=== PATIENT | female | born 1980 | race Caucasian/White ===

== ENCOUNTER 2017-02-04 02:20 | Inpatient (IN) | payer OTHER ==
[2017-02-04] MEDS ORDERED: Lidocaine 1% 50 ML MDV INJECT ONE (02:48)
[2017-02-04] MEDS ORDERED: Sodium Chloride 0.9% 10 ML Syringe FLUSH PRN (02:48)
[2017-02-04] MEDS ORDERED: ePHEDrine 50 MG/ML SDV IVPUSH PRN (03:24)
[2017-02-04] MEDS ORDERED: fentaNYL 100 MCG/2 ML SDV EPIDUR PRN (03:24)
[2017-02-04] MEDS ORDERED: Ondansetron 4 MG/2 ML SDV IVPUSH PRN (03:24)
[2017-02-04] MEDS ORDERED: diphenhydrAMINE 50 MG/ML SDV IVPUSH PRN (03:24)
[2017-02-04] MEDS ORDERED: Bupivacaine/fentaNYL/NS 100 ML Bag EPIDUR SCH (03:30)
--- NOTE | 2017-02-04 03:30 | PCM.PREANE ---
Preanesthetic Assessment - Procedure Proposed Procedure: Labor Epidural - Anesthesia/Transfusion/Family Hx Anesthesia History: Prior Anesthesia Without Reaction Family History of Anesthesia Reaction: No Transfusion History: No Prior Transfusion(s) Type of Transfusion Reactions: Reports: Unknown Intubation History: Unknown - Review of Systems General: No Symptoms Pulmonary: No Symptoms Cardiovascular: No Symptoms Gastrointestinal: No Symptoms Neurological: No Symptoms Other: Reports: None - Physical Assessment NPO Status Date: 02/04/17 NPO Status Time: 00:15 Pulse: 89 O2 Sat by Pulse Oximetry: 98 Respiratory Rate: 22 Blood Pressure: 122/77 Temperature: 36.9 C Height: 1.68 m Weight: 78.925 kg ASA Class: 2 Mental Status: Alert & Oriented x3 Airway Class: Mallampati = 2 Dentition: Reports: Missing Tooth/Teeth (multiple molars ) ROM/Head Extension: Full Lungs: Clear to Auscultation, Normal Respiratory Effort Cardiovascular: Regular Rate, Regular Rhythm - Lab Values: Laboratory Last Values WBC 15.68 K/mm3 (3.98-10.04) H 02/04/17 02:55 RBC 3.75 M/mm3 (3.98-5.22) L 02/04/17 02:55 Hgb 10.4 gm/L (11.2-15.7) L 02/04/17 02:55 Hct 31.7 % (34.1-44.9) L 02/04/17 02:55 MCV 84.5 fl (79.4-94.8) 02/04/17 02:55 MCH 27.7 pg (25.6-32.2) 02/04/17 02:55 MCHC 32.8 g/dl (32.2-35.5) 02/04/17 02:55 RDW Std Deviation 46.1 fL (36.4-46.3) 02/04/17 02:55 Plt Count 221 K/mm3 (182-369) 02/04/17 02:55 MPV 11.5 fl (9.4-12.3) 02/04/17 02:55 - Allergies Allergies/Adverse Reactions: Allergies Allergy/AdvReac Type Severity Reaction Status Date / Time No Known Allergies Allergy Verified 01/19/16 11:18 - Blood Blood Available: No Product(s) Available: None - Anesthesia Plan Pre-Op Medication Ordered: None - Acknowledgements Anesthesia Type Planned: Epidural Pt an Appropriate Candidate for the Planned Anesthesia: Yes Alternatives and Risks of Anesthesia Discussed w Pt/Guardian: Yes Pt/Guardian Understands and Agrees with Anesthesia Plan: Yes PreAnesthesia Questionnaire Other HEENT History: Migraines Other OB/BYN History: cervical dysplasia Musculoskeletal History: Reports: Back Pain, Chronic, Other (See Below) Other Musculoskeletal History: knee pain, foot tendinitis, osteopenia, Psychiatric History: Reports: Depression - Past Surgical History Other Musculoskeletal Surgeries/Procedures:: L wrist surgery, tendon repair - SUBSTANCE USE Smoking Status *Q: Current Every Day Smoker (0.5ppd for 20 years) Tobacco Use Within Last Twelve Months: Cigarettes Second Hand Smoke Exposure: Yes Recreational Drug Use History: No - HOME MEDS Home Medications: Home Meds Calcium Carbonate/Vitamin D3 [Calcium 250+D] 1 each PO BID 01/18/16 [History] Diclofenac Sodium [IJD: Diclofenac Sodium] 75 mg PO WITHBREAKFAST 01/18/16 [ History] Gabapentin [Neurontin] 400 mg PO TID 01/18/16 [History] tiZANidine HCl [Tizanidine HCl] 2 mg PO DAILY 01/18/16 [History] - CURRENT (IN HOUSE) MEDS Current Meds: Current Medications Lactated Ringer's (Ringers, Lactated) 1,000 mls @ 100 mls/hr IV ASDIRECTED SHRUTHI Oxytocin/Lactated Ringer's (Pitocin In Lr 10 Units/1,000 Ml) 10 unit in 1,000 mls @ 500 mls/hr IV .CONTINUOUS SHRUTHI Sodium Chloride (Saline Flush) 10 ml FLUSH ASDIRECTED PRN PRN Reason: Keep Vein Open Discontinued Medications Lidocaine HCl (Xylocaine 1%) 50 ml INJECT ONETIME ONE Stop: 02/04/17 02:49
[2017-02-04] MEDS: Lactated Ringers 1,000 ML IV SCH ×3 (03:33→09:29)
--- NOTE | 2017-02-04 08:20 | PCM.LDHP ---
L&D History of Present Illness - General Date of Service: 02/04/17 Admit Problem/Dx: Patient Status Order with Admit Dx/Problem 02/04/17 02:30 Patient Status [ADT] Routine Admission Diagnosis/Problem Admission Diagnosis/Problem Source of Information: Patient History Limitations: Reports: No Limitations - History of Present Illness Introduction:: 36-year-old [address] 01/29/17 at 40 weeks and 6 days admitted during the night with contractions examination at 0810 hrs. with ruptured membranes showed cervix 7 cm/100% effaced/soft/anterior 0 station meconium-stained amnionic fluid front desk supervisor notified patient's history of advanced maternal age and history of Rh- prior LEEP in 1999 and 2000 previous subsequent delivery should no different difficulties with dilation except progress made only after rupture of membranes and no need for cerclage blood type A- antibody screen negative on 06/04/16 hemoglobin hematocrit 16.3 46.4 on 06/04/16 platelets 194,000 immune rubella titer nonreactive serology urine culture showed Gardnerella vaginalis hepatitis B surface antigen negative and GC chlamydia probe negative harmony obtained 46 XY (female) maternal serum alpha-fetoprotein negative menses negative quad screen) on 11/05/16 hemoglobin hematocrit 12.6 37.2 platelets 214, 000 OB glucose screen 131 3 hour glucose test normal with fasting 80, 1 hour 155 , two-hour 140, 3 hour 44 patient given rogue M111/05/16 admitted for labor and delivery patient presented to labor and delivery with spontaneous labor. Amniotomy performed at 0810 hrs. meconium-stained amnionic fluid front desk supervisor notified Timing/Duration: Reports: minutes: Location, : Reports: Abdomen Quality: Reports: Ache, Burning, Pressure Severity: Severe Pain Score: 10 Improves with: Reports: None Worsens with: Reports: None Associated Symptoms: Reports: N - Related Data Allergies/Adverse Reactions: Allergies Allergy/AdvReac Type Severity Reaction Status Date / Time No Known Allergies Allergy Verified 01/19/16 11:18 Home Medications: Home Meds Calcium Carbonate/Vitamin D3 [Calcium 250+D] 1 each PO BID 01/18/16 [History] Diclofenac Sodium [IJD: Diclofenac Sodium] 75 mg PO WITHBREAKFAST 01/18/16 [ History] Gabapentin [Neurontin] 400 mg PO TID 01/18/16 [History] tiZANidine HCl [Tizanidine HCl] 2 mg PO DAILY 01/18/16 [History] Past Medical History - Past Health History Medical/Surgical History: Denies Medical/Surgical History Other HEENT History: Migraines Other OB/BYN History: cervical dysplasia Musculoskeletal History: Reports: Back Pain, Chronic, Other (See Below) Other Musculoskeletal History: knee pain, foot tendinitis, osteopenia, Psychiatric History: Reports: Depression - Infectious Disease History Infectious Disease History: Reports: Herpes - Past Surgical History Other Musculoskeletal Surgeries/Procedures:: L wrist surgery, tendon repair Social & Family History - Family History Family Medical History: Noncontributory - Tobacco Use Smoking Status *Q: Current Every Day Smoker (0.5ppd for 20 years) Years of Tobacco use: 15 Packs/Tins Daily: 0.5 Used Tobacco, but Quit: No Second Hand Smoke Exposure: Yes - Caffeine Use Caffeine Use: Reports: Soda Other Caffeine Use: 1/day - Recreational Drug Use Recreational Drug Use: No H&P Review of Systems - Review of Systems: Review Of Systems: See Below General: Reports: No Symptoms HEENT: Reports: No Symptoms Pulmonary: Reports: No Symptoms Cardiovascular: Reports: No Symptoms Gastrointestinal: Reports: No Symptoms Genitourinary: Reports: No Symptoms Musculoskeletal: Reports: No Symptoms Skin: Reports: No Symptoms Psychiatric: Reports: No Symptoms Neurological: Reports: No Symptoms Hematologic/Lymphatic: Reports: No Symptoms Immunologic: Reports: No Symptoms L&D Exam - Exam Exam: See Below - Vital Signs Vital Signs: Last Vital Signs Temp 98.4 F 02/04/17 03:33 Pulse 89 02/04/17 03:33 Resp 22 H 02/04/17 03:33 BP 122/77 02/04/17 03:33 Pulse Ox 98 02/04/17 03:33 Weight: 174 lb - OB Specific Fundal Height In cm: 39 Contraction Duration (sec): 60 Contraction Frequency (min): 3 Contraction Intensity: Moderate to Strong Movement: Active Heart Tones: Present Heart Tones per Min: 130 Heart Rate (FHR) Variability: Moderate (6-25 bmp) Presentation: Vertex - Torres Score Torres Score Cervix Position: Anterior Torres Score Consistency: Soft Torres Score Effacement: >80% Torres Score Dilation: > 5 cm Torres Score 's Station: -1 ,0 Torres Score Total: 12 - Exam General: Alert, Oriented HEENT: Conjunctiva Clear, Mucosa Moist & [place], Posterior Pharynx Clear, TMs Clear, PERRLA Neck: Supple, Trachea Midline Lungs: Clear to Auscultation, Normal Respiratory Effort Cardiovascular: Regular Rate, Regular Rhythm GI/Abdominal Exam: Normal Bowel Sounds, Soft, Non-Tender, No Organomegaly, No Distention, No Abnormal Bruit, No Mass, Pelvis Stable Rectal Exam: Normal Exam, Normal Rectal Tone Genitourinary: Normal external exam, Normal bimanual exam, Normal speculum exam Back Exam: Normal Inspection, Full Range of Motion Extremities: Normal Inspection, Normal Range of Motion, Non-Tender, No Pedal Edema, Normal Capillary Refill Skin: Warm, Dry, Intact Psychiatric: Alert, Normal Affect, Normal Mood - Patient Data Lab Results Last 24 hrs: Laboratory Results - last 24 hr 02/04/17 Range/Units 02:55 WBC 15.68 H (3.98-10.04) K/mm3 RBC 3.75 L (3.98-5.22) M/mm3 Hgb 10.4 L (11.2-15.7) gm/L Hct 31.7 L (34.1-44.9) % MCV 84.5 (79.4-94.8) fl MCH 27.7 (25.6-32.2) pg MCHC 32.8 (32.2-35.5) g/dl RDW Std Deviation 46.1 (36.4-46.3) fL Plt Count 221 (182-369) K/mm3 MPV 11.5 (9.4-12.3) fl Result Diagrams: 02/04/17 02:55 - Problem List (1) 40 weeks gestation of SNOMED Code(s): 63465346 ICD Code: Z3A.40 - 40 WEEKS GESTATION OF Status: Acute Current Visit: Yes (2) Advanced maternal age in multigravida SNOMED Code(s): 420959836 ICD Code: O09.529 - SUPERVISION OF ELDERLY MULTIGRAVIDA, UNSPECIFIED TRIMESTER Status: Acute Current Visit: Yes Qualifiers: Trimester: third trimester Qualified Code(s): O09.523 - Supervision of elderly multigravida, third trimester (3) Meconium in amniotic fluid affecting management of mother in third trimester SNOMED Code(s): 47730103, 67729308 ICD Code: O36.8930 - MATERNAL CARE FOR OTH PROBLEMS, THIRD TRIMESTER, UNSP Status: Acute Current Visit: Yes Qualifiers: Fetus number: single or unspecified fetus Qualified Code(s): O36.8930 - Maternal care for other specified problems, third trimester, not applicable or unspecified Problem List Initiated/Reviewed/Updated: No Orders Last 24hrs: Active Orders 24 hr Category Date Time Status Patient Status [ADT] Routine ADT 02/04/17 02:30 Active Activity as Tolerated [RC] PFP Care 02/04/17 02:48 Active Communication Order [RC] ASDIRECTED Care 02/04/17 02:48 Active Notify Provider [RC] PFP Care 02/04/17 02:48 Active Notify Provider [RC] PRN Care 02/04/17 02:48 Active Peripheral IV Care [RC] . DIRECTED Care 02/04/17 02:48 Active Vital Signs [RC] 04,12,20 Care 02/04/17 02:48 Active Clear Liquid Diet [DIET] Diet 02/04/17 Breakfast Active Bupivacaine/fentaNYL/NS [fentaNYL/Bupivacaine/NS 2 MCG- Med 02/04/17 03:30 Active 0.125% 100 ML] 100 ml EPIDUR ASDIRECTED Lactated Ringers [Ringers, Lactated] 1,000 ml Med 02/04/17 03:00 Active IV ASDIRECTED Ondansetron [Zofran] Med 02/04/17 03:24 Active 4 mg IVPUSH ONETIME PRN Oxytocin/Lactated Ringers [Pitocin in LR 10 Units/1,000 Med 02/04/17 03:00 Active ML] 10 unit in 1,000 ml IV .CONTINUOUS Sodium Chloride 0.9% [Saline Flush] Med 02/04/17 02:48 Active 10 ml FLUSH ASDIRECTED PRN diphenhydrAMINE [Benadryl] Med 02/04/17 03:24 Active 25 mg IVPUSH Q6H PRN ePHEDrine [ePHEDrine Sulfate] Med 02/04/17 03:24 Active 5 mg IVPUSH ASDIRECTED PRN fentaNYL [Sublimaze] Med 02/04/17 03:24 Active 100 mcg EPIDUR Q3H PRN Electronic Heart Tones Ext w TOCO [WOMSER] Oth 02/04/17 02:48 Ordered Routine Electronic Heart Tones Internal [WOMSER] Per Unit Oth 02/04/17 02:48 Ordered Routine Peripheral IV Insertion Adult [OM.PC] Routine Oth 02/04/17 02:48 Ordered Resuscitation Status Routine Resus Stat 02/04/17 02:48 Ordered Medication Orders Diphenhydramine HCl (Benadryl) 25 mg IVPUSH Q6H PRN PRN Reason: Pruritis Ephedrine Sulfate (Ephedrine Sulfate) 5 mg IVPUSH ASDIRECTED PRN PRN Reason: Hypotension Fentanyl (Sublimaze) 100 mcg EPIDUR Q3H PRN PRN Reason: Pain Last Admin: 02/04/17 03:56 Dose: 100 mcg Fentanyl/Bupivacaine HCl (Fentanyl/Bupivacaine/Ns 2 Mcg-0.125% 100 Ml) 100 ml EPIDUR ASDIRECTED SHRUTHI Last Admin: 02/04/17 03:57 Dose: 100 ml Lactated Ringer's (Ringers, Lactated) 1,000 mls @ 100 mls/hr IV ASDIRECTED SHRUTHI Last Admin: 02/04/17 03:34 Dose: 100 mls/hr Infusion: 02/04/17 03:34 Dose: 100 mls/hr Admin: 02/04/17 03:33 Dose: 100 mls/hr Oxytocin/Lactated Ringer's (Pitocin In Lr 10 Units/1,000 Ml) 10 unit in 1,000 mls @ 500 mls/hr IV .CONTINUOUS [facility] Ondansetron HCl (Zofran) 4 mg IVPUSH ONETIME PRN PRN Reason: Nausea/Vomiting Sodium Chloride (Saline Flush) 10 ml FLUSH ASDIRECTED PRN PRN Reason: Keep Vein Open Assessment/Plan Comment:: Admit for labor and delivery
[2017-02-04] MEDS: Oxytocin/Lactated Ringers 10 UNIT/1,000 ML BAG IV SCH ×2 (10:52→12:14)
--- NOTE | 2017-02-04 11:06 | PCM.DEL ---
L & D Note - General Info Date of Service: 02/04/17 Mother's Due Date: 01/29/17 - Delivery Note Labor: Spontaneous, Augmented by ARM Delivery Outcome: Livebirth (Male liveborn is 0952 on Saturday02/04/17 MADELINE 4490 g 9 pounds 14.4 ounces Apgars 03/23 Dr. Magdaleno outside repairer special in attendance) Infant Delivery Method: Spontaneous Vaginal Delivery Presentation: Left Occiput Anterior (MADELINE) Nuchal Cord: None Prep: Povidone-Iodine (Betadine Anesthesia Type: Epidural Amniotic Fluid Description: Meconium Stained (Lightly meconium-stained amnionic fluid Dr. Magdaleno outside repairer special in attendance for delivery) Episiotomy Type: None Laceration: None ("Skid ferreira" periurethral first-degree not bleeding not sutured) Placenta: Intact (0 954 02/04/17 Intacs slightly eccentric cord insertion normal examination of the placenta three-vessel cord no missing cotyledons no extra lobes) Cord: 3 Vessels Estimated Blood Loss: 500 Resuscitation Needed: No [place]: Suctioned, Bulb Syringe, Stimulated, Warmed, [place] Used, Warmer Used Provider: Polo Iraheta Score 1 min: 9 Score 5 min: 9 - Patient Data Vitals - most recent: Last Vital Signs Temp 98.4 F 02/04/17 03:33 Pulse 89 02/04/17 03:33 Resp 22 H 02/04/17 03:33 BP 122/77 02/04/17 03:33 Pulse Ox 98 02/04/17 03:33 Weight - most recent: 174 lb Lab Results last 24 hrs: Laboratory Results - last 24 hr 02/04/17 Range/Units 02:55 WBC 15.68 H (3.98-10.04) K/mm3 RBC 3.75 L (3.98-5.22) M/mm3 Hgb 10.4 L (11.2-15.7) gm/L Hct 31.7 L (34.1-44.9) % MCV 84.5 (79.4-94.8) fl MCH 27.7 (25.6-32.2) pg MCHC 32.8 (32.2-35.5) g/dl RDW Std Deviation 46.1 (36.4-46.3) fL Plt Count 221 (182-369) K/mm3 MPV 11.5 (9.4-12.3) fl Med Orders - Current: Current Medications Diphenhydramine HCl (Benadryl) 25 mg IVPUSH Q6H PRN PRN Reason: Pruritis Ephedrine Sulfate (Ephedrine Sulfate) 5 mg IVPUSH ASDIRECTED PRN PRN Reason: Hypotension Fentanyl (Sublimaze) 100 mcg EPIDUR Q3H PRN PRN Reason: Pain Last Admin: 02/04/17 03:56 Dose: 100 mcg Fentanyl/Bupivacaine HCl (Fentanyl/Bupivacaine/Ns 2 Mcg-0.125% 100 Ml) 100 ml EPIDUR ASDIRECTED SHRUTHI Last Admin: 02/04/17 03:57 Dose: 100 ml Lactated Ringer's (Ringers, Lactated) 1,000 mls @ 100 mls/hr IV ASDIRECTED SHRUTHI Last Admin: 02/04/17 09:29 Dose: 100 mls/hr Oxytocin/Lactated Ringer's (Pitocin In Lr 10 Units/1,000 Ml) 10 unit in 1,000 mls @ 500 mls/hr IV .CONTINUOUS [facility] Ondansetron HCl (Zofran) 4 mg IVPUSH ONETIME PRN PRN Reason: Nausea/Vomiting Sodium Chloride (Saline Flush) 10 ml FLUSH ASDIRECTED PRN PRN Reason: Keep Vein Open Discontinued Medications Lidocaine HCl (Xylocaine 1%) 50 ml INJECT ONETIME ONE Stop: 02/04/17 02:49 - Problem List & Annotations (1) 40 weeks gestation of SNOMED Code(s): 68855569 Code(s): Z3A.40 - 40 WEEKS GESTATION OF Status: Acute Current Visit: Yes (2) Advanced maternal age in multigravida SNOMED Code(s): 440273574 Code(s): O09.529 - SUPERVISION OF ELDERLY MULTIGRAVIDA, UNSPECIFIED TRIMESTER Status: Acute Current Visit: Yes Qualifiers: Trimester: third trimester Qualified Code(s): O09.523 - Supervision of elderly multigravida, third trimester (3) Meconium in amniotic fluid affecting management of mother in third trimester SNOMED Code(s): 12663253, 77129474 Code(s): O36.8930 - MATERNAL CARE FOR OTH PROBLEMS, THIRD TRIMESTER, UNSP Status: Acute Current Visit: Yes Qualifiers: Fetus number: single or unspecified fetus Qualified Code(s): O36.8930 - Maternal care for other specified problems, third trimester, not applicable or unspecified - Problem List Review Problem List Initiated/Reviewed/Updated: No - Plan Plan:: Admit for labor and delivery
[2017-02-04] MEDS ORDERED: Docusate Sodium 100 MG Cap PO PRN (11:14)
[2017-02-04] MEDS ORDERED: Witch Hazel Medicated Pads 100/Jar TOP PRN (11:14)
[2017-02-04] MEDS ORDERED: Acetaminophen 325 MG Tab PO PRN (11:14)
[2017-02-04] MEDS ORDERED: Lanolin 100% Cream 7 GM Tube TOP PRN (11:14)
[2017-02-04] MEDS ORDERED: Benzocaine/Menthol 20%-0.5% Spray 56 GM Canister TOP PRN (11:14)
[2017-02-04] MEDS ORDERED: Acetaminophen/oxyCODONE 325-5 MG Tab PO PRN (11:14)
[2017-02-04] MEDS ORDERED: Oxytocin/Lactated Ringers 10 UNIT/1,000 ML BAG IV ONE (12:10)
[2017-02-04] MEDS: Ibuprofen 600 MG Tab PO PRN ×2 (12:44→18:13)
[2017-02-04] MEDS: Gabapentin 100 MG Cap PO SCH ×2 (16:16→23:14)
[2017-02-04] MEDS: Gabapentin 300 MG Cap PO SCH ×2 (16:16→23:14)
[2017-02-04] MEDS ORDERED: Bupivacaine 0.25% 10 ML SDV ONE (22:22)
--- NOTE | 2017-02-05 08:18 | PCM48HPAN ---
Post Anesthesia Note - EVALUATION WITHIN 48HRS OF ANESTHETIC Vital Signs in Normal Range: Yes Patient Participated in Evaluation: Yes Respiratory Function Stable: Yes Airway Patent: Yes Cardiovascular Function Stable: Yes Hydration Status Stable: Yes Pain Control Satisfactory: Yes Nausea and Vomiting Control Satisfactory: Yes Mental Status Recovered: Yes - COMMENTS/OBSERVATIONS Free Text/Narrative:: Patient denies any headache, residual numbness or tingling to lower extremities , or back pain.
--- NOTE | 2017-02-05 08:31 | PCM.DCSUM1 ---
Discharge Summary - Hospital Course Free Text/Narrative:: [facility] LIVE L/D Delivery Note Patient Name: LINCOLN BURNETTE Date of : 76 Patient Status: Inpatient Attending Provider: Yesy Stiles Date: 02/04/17 11:03 Initialization Date: 02/04/17 11:03 L & D Note - General Info Date of Service: 02/04/17 Mother's Due Date: 01/29/17 - Delivery Note Labor: Spontaneous, Augmented by ARM Delivery Outcome: Livebirth (Male liveborn is 0952 on Saturday02/04/17 MADELINE 4490 g 9 pounds 14.4 ounces Apgars 03/23 Dr. Magdaleno siderographer in attendance) Infant Delivery Method: Spontaneous Vaginal Delivery Presentation: Left Occiput Anterior (MADELINE) Nuchal Cord: None Prep: Povidone-Iodine (Betadine Anesthesia Type: Epidural Amniotic Fluid Description: Meconium Stained (Lightly meconium-stained amnionic fluid Dr. Magdaleno siderographer in attendance for delivery) Episiotomy Type: None Laceration: None ("Skid ferreira" periurethral first-degree not bleeding not sutured) Placenta: Intact (0 954 02/04/17 Intacs slightly eccentric cord insertion normal examination of the placenta three-vessel cord no missing cotyledons no extra lobes) Cord: 3 Vessels Estimated Blood Loss: 500 Resuscitation Needed: No : Suctioned, Bulb Syringe, Stimulated, Warmed, Rio Used, Warmer Used Provider: Polo Iraheta Score 1 min: 9 Score 5 min: 9 - Patient Data Vitals - most recent: Last Vital Signs Temp 98.4 F 02/04/17 03:33 Pulse 89 02/04/17 03:33 Resp 22 H 02/04/17 03:33 BP 122/77 02/04/17 03:33 Pulse Ox 98 02/04/17 03:33 Weight - most recent: 174 lb Lab Results last 24 hrs: Laboratory Results - last 24 hr 02/04/17 Range/Units 02:55 WBC 15.68 H (3.98-10.04) K/mm3 RBC 3.75 L (3.98-5.22) M/mm3 Hgb 10.4 L (11.2-15.7) gm/L Hct 31.7 L (34.1-44.9) % MCV 84.5 (79.4-94.8) fl MCH 27.7 (25.6-32.2) pg MCHC 32.8 (32.2-35.5) g/dl RDW Std Deviation 46.1 (36.4-46.3) fL Plt Count 221 (182-369) K/mm3 MPV 11.5 (9.4-12.3) fl Med Orders - Current: Current Medications Diphenhydramine HCl (Benadryl) 25 mg IVPUSH Q6H PRN PRN Reason: Pruritis Ephedrine Sulfate (Ephedrine Sulfate) 5 mg IVPUSH ASDIRECTED PRN PRN Reason: Hypotension Fentanyl (Sublimaze) 100 mcg EPIDUR Q3H PRN PRN Reason: Pain Last Admin: 02/04/17 03:56 Dose: 100 mcg Fentanyl/Bupivacaine HCl (Fentanyl/Bupivacaine/Ns 2 Mcg-0.125% 100 Ml) 100 ml EPIDUR ASDIRECTED [facility] Last Admin: 02/04/17 03:57 Dose: 100 ml Lactated Ringer's (Ringers, Lactated) 1,000 mls @ 100 mls/hr IV ASDIRECTED [facility] Last Admin: 02/04/17 09:29 Dose: 100 mls/hr Oxytocin/Lactated Ringer's (Pitocin In Lr 10 Units/1,000 Ml) 10 unit in 1,000 mls @ 500 mls/hr IV .CONTINUOUS [facility] Ondansetron HCl (Zofran) 4 mg IVPUSH ONETIME PRN PRN Reason: Nausea/Vomiting Sodium Chloride (Saline Flush) 10 ml FLUSH ASDIRECTED PRN PRN Reason: Keep Vein Open Discontinued Medications Lidocaine HCl (Xylocaine 1%) 50 ml INJECT ONETIME ONE Stop: 02/04/17 02:49 - Problem List & Annotations (1) 40 weeks gestation of SNOMED Code(s): 55909094 Code(s): Z3A.40 - 40 WEEKS GESTATION OF Status: Acute Current Visit: Yes (2) Advanced maternal age in multigravida SNOMED Code(s): 970241872 Code(s): O09.529 - SUPERVISION OF ELDERLY MULTIGRAVIDA, UNSPECIFIED TRIMESTER Status: Acute Current Visit: Yes Qualifiers: Trimester: third trimester Qualified Code(s): O09.523 - Supervision of elderly multigravida, third trimester (3) Meconium in amniotic fluid affecting management of mother in third trimester SNOMED Code(s): 50940156, 35552279 Code(s): O36.8930 - MATERNAL CARE FOR OTH PROBLEMS, THIRD TRIMESTER, UNSP Status: Acute Current Visit: Yes Qualifiers: Fetus number: single or unspecified fetus Qualified Code(s): O36.8930 - Maternal care for other specified problems, third trimester, not applicable or unspecified - Problem List Review Problem List Initiated/Reviewed/Updated: No - Plan Plan:: Admit for labor and delivery HPI Initial Comments: [facility] LIVE L/D Delivery Note Patient Name: LINCOLN BURNETTE Date of : 76 Patient Status: Inpatient Attending Provider: Yesy Stiles Date: 02/04/17 11:03 Initialization Date: 02/04/17 11:03 L & D Note - General Info Date of Service: 02/04/17 Mother's Due Date: 01/29/17 - Delivery Note Labor: Spontaneous, Augmented by ARM Delivery Outcome: Livebirth (Male liveborn is 0952 on Saturday02/04/17 MADELINE 4490 g 9 pounds 14.4 ounces Apgars 9/9 Dr. Magdaleno siderographer in attendance) Infant Delivery Method: Spontaneous Vaginal Delivery Presentation: Left Occiput Anterior (MADELINE) Nuchal Cord: None Prep: Povidone-Iodine (Betadine Anesthesia Type: Epidural Amniotic Fluid Description: Meconium Stained (Lightly meconium-stained amnionic fluid Dr. Magdaleno siderographer in attendance for delivery) Episiotomy Type: None Laceration: None ("Skid ferreira" periurethral first-degree not bleeding not sutured) Placenta: Intact (0 954 02/04/17 Intacs slightly eccentric cord insertion normal examination of the placenta three-vessel cord no missing cotyledons no extra lobes) Cord: 3 Vessels Estimated Blood Loss: 500 Resuscitation Needed: No [place]: Suctioned, Bulb Syringe, Stimulated, Warmed, Rio Used, Warmer Used Provider: Polo Iraheta Score 1 min: 9 Score 5 min: 9 - Patient Data Vitals - most recent: Last Vital Signs Temp 98.4 F 02/04/17 03:33 Pulse 89 02/04/17 03:33 Resp 22 H 02/04/17 03:33 BP 122/77 02/04/17 03:33 Pulse Ox 98 02/04/17 03:33 Weight - most recent: 174 lb Lab Results last 24 hrs: Laboratory Results - last 24 hr 02/04/17 Range/Units 02:55 WBC 15.68 H (3.98-10.04) K/mm3 RBC 3.75 L (3.98-5.22) M/mm3 Hgb 10.4 L (11.2-15.7) gm/L Hct 31.7 L (34.1-44.9) % MCV 84.5 (79.4-94.8) fl MCH 27.7 (25.6-32.2) pg MCHC 32.8 (32.2-35.5) g/dl RDW Std Deviation 46.1 (36.4-46.3) fL Plt Count 221 (182-369) K/mm3 MPV 11.5 (9.4-12.3) fl Med Orders - Current: Current Medications Diphenhydramine HCl (Benadryl) 25 mg IVPUSH Q6H PRN PRN Reason: Pruritis Ephedrine Sulfate (Ephedrine Sulfate) 5 mg IVPUSH ASDIRECTED PRN PRN Reason: Hypotension Fentanyl (Sublimaze) 100 mcg EPIDUR Q3H PRN PRN Reason: Pain Last Admin: 02/04/17 03:56 Dose: 100 mcg Fentanyl/Bupivacaine HCl (Fentanyl/Bupivacaine/Ns 2 Mcg-0.125% 100 Ml) 100 ml EPIDUR ASDIRECTED [facility] Last Admin: 02/04/17 03:57 Dose: 100 ml Lactated Ringer's (Ringers, Lactated) 1,000 mls @ 100 mls/hr IV ASDIRECTED [facility] Last Admin: 02/04/17 09:29 Dose: 100 mls/hr Oxytocin/Lactated Ringer's (Pitocin In Lr 10 Units/1,000 Ml) 10 unit in 1,000 mls @ 500 mls/hr IV .CONTINUOUS [facility] Ondansetron HCl (Zofran) 4 mg IVPUSH ONETIME PRN PRN Reason: Nausea/Vomiting Sodium Chloride (Saline Flush) 10 ml FLUSH ASDIRECTED PRN PRN Reason: Keep Vein Open Discontinued Medications Lidocaine HCl (Xylocaine 1%) 50 ml INJECT ONETIME ONE Stop: 02/04/17 02:49 - Problem List & Annotations (1) 40 weeks gestation of SNOMED Code(s): 20797514 Code(s): Z3A.40 - 40 WEEKS GESTATION OF Status: Acute Current Visit: Yes (2) Advanced maternal age in multigravida SNOMED Code(s): 837313341 Code(s): O09.529 - SUPERVISION OF ELDERLY MULTIGRAVIDA, UNSPECIFIED TRIMESTER Status: Acute Current Visit: Yes Qualifiers: Trimester: third trimester Qualified Code(s): O09.523 - Supervision of elderly multigravida, third trimester (3) Meconium in amniotic fluid affecting management of mother in third trimester SNOMED Code(s): 99421416, 36229583 Code(s): O36.8930 - MATERNAL CARE FOR OTH PROBLEMS, THIRD TRIMESTER, UNSP Status: Acute Current Visit: Yes Qualifiers: Fetus number: single or unspecified fetus Qualified Code(s): O36.8930 - Maternal care for other specified problems, third trimester, not applicable or unspecified - Problem List Review Problem List Initiated/Reviewed/Updated: No - Plan Plan:: Admit for labor and delivery Brief History: [facility] LIVE . L/D Delivery Note. Patient Name: LINCOLN BURNETTE [facility] Record Number: [id number]. Date of : Patient Status: Inpatient. Attending Provider: Yesy StilesAccount Number: [id number]. Date: 02/04/17 11:03Initialization Date: 02/04/17 11:03. L & D Note. - General Info. Date of Service: 02/04/17. Mother's Due Date: 01/29/17. - Delivery Note. Labor: Spontaneous, Augmented by ARM. Delivery Outcome: Livebirth (Male liveborn is 0952 on Saturday02/04/17 MADELINE 4490 g 9 pounds 14.4 ounces Apgars 9/9 Dr. Magdaleno siderographer in attendance) . Delivery Method: Spontaneous Vaginal Delivery. Presentation: Left Occiput Anterior (MADELINE). Nuchal Cord: None. Prep: Povidone-Iodine ( Betadine. Anesthesia Type: Epidural. Amniotic Fluid Description: Meconium Stained (Lightly meconium-stained amnionic fluid Dr. Magdaleno siderographer in attendance for delivery). Episiotomy Type: None. Laceration: None ("Skid ferreira " periurethral first-degree not bleeding not sutured). Placenta: Intact (0 954 02/04/17 Intacs slightly eccentric cord insertion normal examination of the placenta three-vessel cord no missing cotyledons no extra lobes). Cord: 3 Vessels. Estimated Blood Loss: 500. Resuscitation Needed: No. [place]: Suctioned, Bulb Syringe, Stimulated, Warmed, Rio Used, Warmer Used. Provider: Ploo Iraheta. Score 1 min: 9. Score 5 min : 9. - Patient Data. Vitals - most recent: Last Vital Signs. Temp 98.4 F 03:33. Pulse 89 02/04/17 03:33. Resp 22 H 02/04/17 03:33. BP 122/77 02/04/17 03:33. Pulse Ox 98 02/04/17 03:33. Weight - most recent: 174 lb. Lab Results last 24 hrs: Laboratory Results - last 24 hr. 02/04/17Range/ Units. 02:55. WBC 15.68 H (3.98-10.04) K/mm3. RBC 3.75 L (3.98-5.22) M/ mm3. Hgb 10.4 L (11.2-15.7) gm/L. Hct 31.7 L (34.1-44.9) %. MCV 84.5 (79.4- 94.8) fl. MCH 27.7 (25.6-32.2) pg. MCHC 32.8 (32.2-35.5) g/dl. RDW Std Deviation 46.1 (36.4-46.3) fL. Plt Count 221 (182-369) K/mm3. MPV 11.5 (9.4- 12.3) fl. Med Orders - Current: Current Medications. Diphenhydramine HCl ( Benadryl) 25 mg IVPUSH Q6H PRN. PRN Reason: Pruritis. Ephedrine Sulfate ( Ephedrine Sulfate) 5 mg IVPUSH ASDIRECTED PRN. PRN Reason: Hypotension. Fentanyl (Sublimaze) 100 mcg EPIDUR Q3H PRN. PRN Reason: Pain. Last Admin: 03:56 Dose: 100 mcg. Fentanyl/Bupivacaine HCl (Fentanyl/Bupivacaine/Ns 2 Mcg-0.125% 100 Ml) 100 ml EPIDUR ASDIRECTED [facility]. Last Admin: 02/04/17 03:57 Dose: 100 ml. Lactated Ringer's (Ringers, Lactated) 1,000 mls @ 100 mls/hr IV ASDIRECTED [facility]. Last Admin: 02/04/17 09:29 Dose: 100 mls/hr. Oxytocin/ Lactated Ringer's (Pitocin In Lr 10 Units/1,000 Ml) 10 unit in 1,000 mls @ 500 mls/hr IV .CONTINUOUS [facility]. Ondansetron HCl (Zofran) 4 mg IVPUSH ONETIME PRN. PRN Reason: Nausea/Vomiting. Sodium Chloride (Saline Flush) 10 ml FLUSH ASDIRECTED PRN. PRN Reason: Keep Vein Open. Discontinued Medications. Lidocaine HCl (Xylocaine 1%) 50 ml INJECT ONETIME ONE. Stop: 02/04/17 02:49. - Problem List & Annotations. (1) 40 weeks gestation of . SNOMED Code (s): 75962195. Code(s): Z3A.40 - 40 WEEKS GESTATION OF Status: Acute Current Visit: Yes. (2) Advanced maternal age in multigravida. SNOMED Code(s): 844154866. Code(s): O09.529 - SUPERVISION OF ELDERLY MULTIGRAVIDA, UNSPECIFIED TRIMESTER Status: Acute Current Visit: Yes. Qualifiers: Trimester: third trimester Qualified Code(s): O09.523 - Supervision of elderly multigravida, third trimester. (3) Meconium in amniotic fluid affecting management of mother in third trimester. SNOMED Code(s): 97828253, 82717894. Code(s): O36.8930 - MATERNAL CARE FOR OTH PROBLEMS, THIRD TRIMESTER, UNSP Status: Acute Current Visit: Yes. Qualifiers: Fetus number : single or unspecified fetus Qualified Code(s): O36.8930 - Maternal care for other specified problems, third trimester, not applicable or unspecified. - Problem List Review. Problem List Initiated/Reviewed/Updated: No. - Plan. Plan:: Admit for labor and delivery - Discharge Data Discharge Date: 02/05/17 Discharge Disposition: Home, Self-Care 01 Condition: Good - Discharge Diagnosis/Problem(s) (1) 40 weeks gestation of SNOMED Code(s): 75948336 ICD Code: Z3A.40 - 40 WEEKS GESTATION OF Status: Acute Current Visit: Yes (2) Advanced maternal age in multigravida SNOMED Code(s): 880504150 ICD Code: O09.529 - SUPERVISION OF ELDERLY MULTIGRAVIDA, UNSPECIFIED TRIMESTER Status: Acute Current Visit: Yes Qualifiers: Trimester: third trimester Qualified Code(s): O09.523 - Supervision of elderly multigravida, third trimester (3) Meconium in amniotic fluid affecting management of mother in third trimester SNOMED Code(s): 46309469, 93945005 ICD Code: O36.8930 - MATERNAL CARE FOR OTH PROBLEMS, THIRD TRIMESTER, UNSP Status: Acute Current Visit: Yes Qualifiers: Fetus number: single or unspecified fetus Qualified Code(s): O36.8930 - Maternal care for other specified problems, third trimester, not applicable or unspecified - Patient Summary/Data Complications: None Consults: None Hospital Course: Uneventful - Patient Instructions Diet: Heart Healthy Diet Driving: Do Not Drive (48 hours) Showering/Bathing: May Shower Notify Provider of: Fever, Increased Pain, Swelling and Redness, Drainage, Nausea and/or Vomiting - Discharge Plan Home Medications: Home Meds Calcium Carbonate/Vitamin D3 [Calcium 250+D] 1 each PO BID 01/18/16 [History] Acetaminophen [Tylenol] 650 mg PO Q6H PRN #0 tablet 02/05/17 [Rx] Benzocaine/Menthol [Dermoplast Pain Relief [place]] 1 spray TOP ASDIRECTED PRN #0 canister 02/05/17 [Rx] Docusate Sodium [Colace] 100 mg PO BID PRN #0 cap 02/05/17 [Rx] Ibuprofen [IJD: Ibuprofen] 200 - 600 mg PO Q6H PRN #0 tablet 02/05/17 [Rx] Ephraim Singh [Tucks] 1 pad TOP ASDIRECTED PRN #0 pad 02/05/17 [Rx] Referrals: Polo Iraheta MD [Physician] - (Make appointment to see me in 6 weeks ) - Discharge Summary/Plan Comment DC Time >30 min.: No - Patient Data Vitals - Most Recent: Last Vital Signs Temp 98.2 F 02/05/17 06:18 Pulse 82 02/05/17 06:18 Resp 16 02/05/17 06:18 BP 107/94 H 02/05/17 06:18 Pulse Ox 98 02/05/17 06:18 Weight - Most Recent: 174 lb I&O - Last 24 hours: Intake & Output 02/04/17 02/05/17 02/05/17 22:59 06:59 14:59 Intake Total 0 Balance 0 Lab Results - Last 24 hrs: Laboratory Results - last 24 hr 02/04/17 02/05/17 Range/Units 14:21 07:00 WBC 12.64 H (3.98-10.04) K/mm3 RBC 3.49 L (3.98-5.22) M/mm3 Hgb 9.4 L (11.2-15.7) gm/L Hct 30.1 L (34.1-44.9) % MCV 86.2 (79.4-94.8) fl MCH 26.9 (25.6-32.2) pg MCHC 31.2 L (32.2-35.5) g/dl RDW Std Deviation 47.2 H (36.4-46.3) fL Plt Count 187 (182-369) K/mm3 MPV 11.7 (9.4-12.3) fl Neut % (Auto) 70.6 (34.0-71.1) % Lymph % (Auto) 21.2 (19.3-51.7) % [place] % (Auto) 6.6 (4.7-12.5) % Eos % (Auto) 1.2 (0.7-5.8) Baso % (Auto) 0.2 (0.1-1.2) % Neut # (Auto) 8.93 H (1.56-6.13) K/mm3 Lymph # (Auto) 2.68 (1.18-3.74) K/mm3 [place] # (Auto) 0.83 H (0.24-0.36) K/mm3 Eos # (Auto) 0.15 (0.04-0.36) K/mm3 Baso # (Auto) 0.03 (0.01-0.08) K/mm3 Blood Type A NEGATIVE Gel Antibody Screen Negative Screen 0 ros/5 flds - neg RhIG Candidate? Yes Rhogam Indicated Yes, baby rh pos H Med Orders - Current: Current Medications Acetaminophen (Tylenol) 650 mg PO Q4H PRN PRN Reason: mild pain or fever Benzocaine/Menthol (Dermoplast Pain Relief [place]) 0 gm TOP ASDIRECTED PRN PRN Reason: Perineal Comfort Measure Last Admin: 02/04/17 12:45 Dose: 1 can Docusate Sodium (Colace) 100 mg PO BID PRN PRN Reason: Constipation Last Admin: 02/04/17 12:44 Dose: 100 mg Emollient Ointment (Lansinoh Hpa) 0 gm TOP ASDIRECTED PRN PRN Reason: Sore Nipples Last Admin: 02/04/17 12:45 Dose: 1 tube Gabapentin (Neurontin) 100 mg PO TID [facility] Last Admin: 02/04/17 23:14 Dose: Not Given Gabapentin (Neurontin) 300 mg PO TID [facility] Last Admin: 02/04/17 23:14 Dose: Not Given Ibuprofen (Motrin) 600 mg PO Q4H PRN PRN Reason: Mild pain or fever Last Admin: 02/04/17 18:13 Dose: 600 mg Oxycodone/Acetaminophen (Percocet 325-5 Mg) 2 tab PO Q4H PRN PRN Reason: Pain (moderate 4-6) Tizanidine HCl (Zanaflex) 2 [facility] PO DAILY [facility] (Tucks) 1 pad TOP ASDIRECTED PRN PRN Reason: Hemorrhoid pain Last Admin: 02/04/17 12:46 Dose: 1 tub Discontinued Medications Diphenhydramine HCl (Benadryl) 25 mg IVPUSH Q6H PRN PRN Reason: Pruritis Ephedrine Sulfate (Ephedrine Sulfate) 5 mg IVPUSH ASDIRECTED PRN PRN Reason: Hypotension Fentanyl (Sublimaze) 100 mcg EPIDUR Q3H PRN PRN Reason: Pain Last Admin: 02/04/17 03:56 Dose: 100 mcg Fentanyl/Bupivacaine HCl (Fentanyl/Bupivacaine/Ns 2 Mcg-0.125% 100 Ml) 100 ml EPIDUR ASDIRECTED [facility] Last Admin: 02/04/17 03:57 Dose: 100 ml Lactated Ringer's (Ringers, Lactated) 1,000 mls @ 100 mls/hr IV ASDIRECTED [facility] Last Admin: 02/04/17 09:29 Dose: 100 mls/hr Oxytocin/Lactated Ringer's (Pitocin In Lr 10 Units/1,000 Ml) 10 unit in 1,000 mls @ 500 mls/hr IV .CONTINUOUS [facility] Last Admin: 02/04/17 12:14 Dose: 500 mls/hr Oxytocin/Lactated Ringer's (Pitocin In Lr 10 Units/1,000 Ml) Confirm Administered Dose 10 unit in 1,000 mls @ as directed IV .STK-MED ONE Stop: 02/04/17 12:11 Last Admin: 02/04/17 16:17 Dose: Not Given Lidocaine HCl (Xylocaine 1%) 50 ml INJECT ONETIME ONE Stop: 02/04/17 02:49 Ondansetron HCl (Zofran) 4 mg IVPUSH ONETIME PRN PRN Reason: Nausea/Vomiting Sodium Chloride (Saline Flush) 10 ml FLUSH ASDIRECTED PRN PRN Reason: Keep Vein Open *Q Meaningful Use (DIS) - VTE *Q VTE Criteria *Q: - Stroke *Q Stroke Criteria *Q: - AMI *Q AMI Criteria *Q:
[2017-02-05] MEDS ORDERED: tiZANidine 4 MG Tab PO SCH (09:00)
--- NOTE | 2017-02-05 13:23 | PCM.SN ---
- Free Text/Narrative Note: Cervix 5-6 90 %effaced, 0 station mid position Cat I FHR Discussed epidural.
[2017-02-05 13:52] VITALS: BP 116/72
== END 2017-02-05 13:20 | disposition home or self-care (01) | DRG 775 ==
LOC: JD.OB 02:20 → JD.OBCHECK 02:20 → JD.OB 02:30 → OBSVTOIN 10:52
PROVIDERS: ADMIT Obstetrics & Gynecology; ATTEND Obstetrics & Gynecology
PROC: 10E0XZZ Delivery of Products of Conception, External Approach (ICD-10-PCS; principal; 2017-02-04)
PROC: 10907ZC Drainage of Amniotic Fluid, Therapeutic from Products of Conception, Via Natural or Artificial Opening (ICD-10-PCS; 2017-02-04)
PROC: 00HU33Z Insertion of Infusion Device into Spinal Canal, Percutaneous Approach (ICD-10-PCS; 2017-02-04)
PROC: 3E0R3CZ (ICD-10-PCS; 2017-02-04)
DX: O99.334 Smoking (tobacco) complicating childbirth (principal); F17.200 Nicotine dependence, unspecified, uncomplicated; O77.0 Labor and delivery complicated by meconium in amniotic fluid; O48.0 Post-term pregnancy; O71.82 Other specified trauma to perineum and vulva; Z3A.41 41 weeks gestation of pregnancy; Z37.0 Single live birth; Z79.899 Other long term (current) drug therapy; O75.89 Other specified complications of labor and delivery; G43.909 Migraine, unspecified, not intractable, without status migrainosus; G89.29 Other chronic pain
CPT/HCPCS: 36415; 85025; 85027; 85461; 86850; 86900; 86901; A9270-GY; J2590; J2790; J3010; J7120

== ENCOUNTER 2020-08-18 18:07 | Emergency (ER) | payer OTHER ==
[2020-08-18] MEDS ORDERED: Sodium Chloride 0.9% 1,000 ML IV STA (18:53)
[2020-08-18] MEDS ORDERED: Ondansetron 4 MG/2 ML SDV IVPUSH ONE (18:53)
[2020-08-18] MEDS ORDERED: Sodium Chloride 0.9% 10 ML Syringe FLUSH PRN (18:53)
--- NOTE | 2020-08-18 19:02 | EDM.PDOC ---
<MariposanancyBarrieMarky - Last Filed: 08/18/20 18:56> ED HPI GENERAL MEDICAL PROBLEM - General Chief Complaint: Abdominal Pain Stated Complaint: ABDOMINAL PAIN Time Seen by Provider: 08/18/20 18:31 Source of Information: Reports: Patient History Limitations: Reports: No Limitations - History of Present Illness INITIAL COMMENTS - FREE TEXT/NARRATIVE: The patient presents with abdominal pain, nausea, vomiting and diarrhea. This started a few days ago. She said for about a year and a half she has been having these symptoms. They will come and go every other month. She has diarrhea with it. She has pain to the mid abdomen. She has no fever, chills, cough, chest pain or shortness of breath. She still has her appendix and gallbladder. She has no dysuria. She has gone to her doctor for this and she was told it was a GI bug. She does not think she is . Onset: Gradual Duration: Day(s): Location: Reports: Abdomen Quality: Reports: Sharp Severity: Moderate Improves with: Reports: None Worsens with: Reports: None Associated Symptoms: Reports: Nausea/Vomiting. Denies: Chest Pain, Cough, Fever/Chills, Headaches, Shortness of Breath Mid-Anterior Abdomen Pain Score (Numeric/FACES): 5 - Related Data Allergies Allergy/AdvReac Type Severity Reaction Status Date / Time No Known Allergies Allergy Verified 08/18/20 18:42 Home Meds: Home Meds Dicyclomine [Bentyl] 1 tab PO Q6H PRN #20 tablet 08/18/20 [Rx] Past Medical History - Past Health History Medical/Surgical History: Denies Medical/Surgical History Other HEENT History: Migraines BOOTMAKER History: Reports: Endometriosis, Other BOOTMAKER History: cervical dysplasia Musculoskeletal History: Reports: Back Pain, Chronic, Other (See Below) Other Musculoskeletal History: knee pain, foot tendinitis, osteopenia, Neurological History: Reports: Migraines Psychiatric History: Reports: Depression - Infectious Disease History Infectious Disease History: Reports: Human Papilloma Virus (HPV) - Past Surgical History Other Musculoskeletal Surgeries/Procedures:: L wrist surgery, tendon repair Social & Family History - Family History Family Medical History: No Pertinent Family History - Tobacco Use Tobacco Use Status *Q: Current Every Day Tobacco User Years of Tobacco use: 25 Packs/Tins Daily: 0.5 Used Tobacco, but Quit: No - Caffeine Use Caffeine Use: Reports: None Other Caffeine Use: 1/day - Recreational Drug Use Recreational Drug Use: No ED ROS GENERAL - Review of Systems Review Of Systems: See Below Constitutional: Reports: No Symptoms HEENT: Reports: No Symptoms Respiratory: Reports: No Symptoms Cardiovascular: Reports: No Symptoms Endocrine: Reports: No Symptoms GI/Abdominal: Reports: Abdominal Pain, Diarrhea, Nausea, Vomiting : Reports: No Symptoms Musculoskeletal: Reports: No Symptoms ED EXAM, GI/ABD - Physical Exam Exam: See Below Exam Limited By: No Limitations General Appearance: Alert, No Apparent Distress Ears: Normal External Exam Nose: Normal Inspection Head: Atraumatic, Normocephalic Neck: Normal Inspection Respiratory/Chest: No Respiratory Distress, Lungs Clear, Normal Breath Sounds Cardiovascular: Regular Rate, Rhythm, No Edema, No Murmur GI/Abdominal Exam: Soft, No Organomegaly, No Mass, Tender (Moderate tenderness to the mid abdomen) Extremities: Normal Inspection Neurological: Alert, Oriented, No Motor/Sensory Deficits Course - Re-Assessments/Exams Free Text/Narrative Re-Assessment/Exam: 08/18/20 19:04 I ordered an IV NS 1L bolus, zofran 4mg IV, labs, UA and a CT of her abdomen and pelvis with IV and oral contras. At this time she does not want any pain medications. It is change of shift. Dr Tamayo to take over. Departure - Departure Disposition: Home, Self-Care 01 Clinical Impression: Abdominal pain of unknown etiology, Nausea vomiting and diarrhea - Discharge Information Referrals: Mary Doty MD [Primary Care Provider] - Forms: ED Department Discharge Additional Instructions: You were seen in the emergency room for recurrent symptoms of abdominal pain, nausea, vomiting, and diarrhea, over the past 1-1/2 years, with your most recent symptoms over the past 2 days. Work-up in the ER included several blood tests, a urinalysis, and a CT of your abdomen and pelvis with oral and IV contrast. Your CT scan scan found that you have 2 small uterine fibroids, otherwise, your entire work-up was unremarkable, and does not explain the cause of your sym ptoms. The uterine fibroids can cause lower abdominal pain, but would not cause nausea, vomiting, or diarrhea. You have been started on the anti-cramping medicine Bentyl, and a prescription for Bentyl has been sent to [facility], located in the [facility], across the street from the hospital. You may take 1 tablet of Bentyl up to every 6 hours, as needed for abdominal cramps. Be aware that Bentyl may cause constipation if you take it often. We recommend that you follow-up with your PCP, Dr. Mary Doty, at the [facility], for further evaluation. If any other problems, please do not hesitate to return to the ER. Sepsis Event Note (ED) - Evaluation Sepsis Screening Result: No Definite Risk <Nilson Tamayo - Last Filed: 08/18/20 21:37> Course - Vital Signs Last Recorded V/S: Last Vital Signs Temp 36.6 C 08/18/20 18:40 Pulse 100 08/18/20 18:40 Resp 18 08/18/20 18:40 BP 131/92 H 08/18/20 18:40 Pulse Ox 98 08/18/20 18:40 - Orders/Labs/Meds Orders: Active Orders 24 hr Category Date Time Status Peripheral IV Care [RC] . DIRECTED Care 08/18/20 18:53 Active Abdomen Pelvis w Cont [CT] Stat Exams 08/18/20 18:53 Taken Dicyclomine [Bentyl] Med 08/18/20 21:29 Stat 20 mg PO ONETIME STA Sodium Chloride 0.9% [Saline Flush] Med 08/18/20 18:53 Active 10 ml FLUSH ASDIRECTED PRN Sodium Chloride 0.9% [Saline Flush] Med 08/18/20 20:30 Active 10 ml FLUSH BOLUS ED Antiemetic Medication Reflex [OM.PC] Stat Oth 08/18/20 18:53 Ordered Peripheral IV Insertion Adult [OM.PC] Stat Oth 08/18/20 18:53 Ordered Medication Orders Sodium Chloride (Saline Flush) 10 ml FLUSH ASDIRECTED PRN PRN Reason: Keep Vein Open Last Admin: 08/18/20 19:11 Dose: 10 ml Documented by: JAZMINE Sodium Chloride (Saline Flush) 10 ml FLUSH BOLUS [facility] Last Admin: 08/18/20 20:48 Dose: 10 ml Documented by: SELWYN Labs: Laboratory Tests 08/18/20 08/18/20 08/18/20 Range/Units 19:04 19:10 19:10 WBC 7.33 (3.98-10.04) K/mm3 RBC 4.61 (3.98-5.22) M/mm3 Hgb 14.8 D (11.2-15.7) gm/dl Hct 43.0 (34.1-44.9) % MCV 93.3 D (79.4-94.8) fl MCH 32.1 (25.6-32.2) pg MCHC 34.4 (32.2-35.5) g/dl RDW Std Deviation 43.0 (36.4-46.3) fL Plt Count 133 L (182-369) K/mm3 MPV 11.4 (9.4-12.3) fl Neut % (Auto) 44.3 (34.0-71.1) % Lymph % (Auto) 43.5 (19.3-51.7) % [place] % (Auto) 9.7 (4.7-12.5) % Eos % (Auto) 2.0 (0.7-5.8) Baso % (Auto) 0.4 (0.1-1.2) % Neut # (Auto) 3.24 (1.56-6.13) K/mm3 Lymph # (Auto) 3.19 (1.18-3.74) K/mm3 [place] # (Auto) 0.71 H (0.24-0.36) K/mm3 Eos # (Auto) 0.15 (0.04-0.36) K/mm3 Baso # (Auto) 0.03 (0.01-0.08) K/mm3 Sodium 144 (136-145) mEq/L Potassium 3.6 (3.5-5.1) mEq/L Chloride 105 (98-107) mEq/L Carbon Dioxide 28 (21-32) mEq/L Anion Gap 14.6 (5-15) BUN 13 (7-18) mg/dL Creatinine 0.9 (0.55-1.02) mg/dL Est Cr Clr Drug Dosing 77.01 mL/min Estimated GFR (MDRD) > 60 (>60) mL/min BUN/Creatinine Ratio 14.4 (14-18) Glucose 72 L (74-106) mg/dL Calcium 9.2 (8.5-10.1) mg/dL Total Bilirubin 0.4 (0.2-1.0) mg/dL AST 24 (15-37) U/L ALT 42 (14-59) U/L Alkaline Phosphatase 67 (46-116) U/L C-Reactive Protein 1.9 H* (<1.0) mg/dL Total Protein 7.2 (6.4-8.2) g/dl Albumin 4.0 (3.4-5.0) g/dl Globulin 3.2 gm/dL Albumin/Globulin Ratio 1.3 (1-2) HCG, Qual (NEGATIVE) Urine Color Light yellow (Yellow) Urine Appearance Clear (Clear) Urine pH 7.0 (5.0-8.0) Ur Specific [place] 1.015 (1.005-1.030) Urine Protein Negative (Negative) Urine Glucose (UA) Negative (Negative) Urine Ketones Negative (Negative) Urine Occult Blood Negative (Negative) Urine Nitrite Negative (Negative) Urine Bilirubin Negative (Negative) Urine Urobilinogen 0.2 (0.2-1.0) Ur Leukocyte Esterase Negative (Negative) Urine RBC 0-5 (0-5) /hpf Urine WBC 0-5 (0-5) /hpf Ur Epithelial Cells 0-5 (0-5) /hpf Urine Bacteria Not seen (FEW) /hpf Urine Mucus Not seen (FEW) /hpf 08/18/20 Range/Units 19:10 WBC (3.98-10.04) K/mm3 RBC (3.98-5.22) M/mm3 Hgb (11.2-15.7) gm/dl Hct (34.1-44.9) % MCV (79.4-94.8) fl MCH (25.6-32.2) pg MCHC (32.2-35.5) g/dl RDW Std Deviation (36.4-46.3) fL Plt Count (182-369) K/mm3 MPV (9.4-12.3) fl Neut % (Auto) (34.0-71.1) % Lymph % (Auto) (19.3-51.7) % [place] % (Auto) (4.7-12.5) % Eos % (Auto) (0.7-5.8) Baso % (Auto) (0.1-1.2) % Neut # (Auto) (1.56-6.13) K/mm3 Lymph # (Auto) (1.18-3.74) K/mm3 [place] # (Auto) (0.24-0.36) K/mm3 Eos # (Auto) (0.04-0.36) K/mm3 Baso # (Auto) (0.01-0.08) K/mm3 Sodium (136-145) mEq/L Potassium (3.5-5.1) mEq/L Chloride (98-107) mEq/L Carbon Dioxide (21-32) mEq/L Anion Gap (5-15) BUN (7-18) mg/dL Creatinine (0.55-1.02) mg/dL Est Cr Clr Drug Dosing mL/min Estimated GFR (MDRD) (>60) mL/min BUN/Creatinine Ratio (14-18) Glucose (74-106) mg/dL Calcium (8.5-10.1) mg/dL Total Bilirubin (0.2-1.0) mg/dL AST (15-37) U/L ALT (14-59) U/L Alkaline Phosphatase (46-116) U/L C-Reactive Protein (<1.0) mg/dL Total Protein (6.4-8.2) g/dl Albumin (3.4-5.0) g/dl Globulin gm/dL Albumin/Globulin Ratio (1-2) HCG, Qual Negative (NEGATIVE) Urine Color (Yellow) Urine Appearance (Clear) Urine pH (5.0-8.0) Ur Specific [place] (1.005-1.030) Urine Protein (Negative) Urine Glucose (UA) (Negative) Urine Ketones (Negative) Urine Occult Blood (Negative) Urine Nitrite (Negative) Urine Bilirubin (Negative) Urine Urobilinogen (0.2-1.0) Ur Leukocyte Esterase (Negative) Urine RBC (0-5) /hpf Urine WBC (0-5) /hpf Ur Epithelial Cells (0-5) /hpf Urine Bacteria (FEW) /hpf Urine Mucus (FEW) /hpf Meds: Medications Generic Name Dose Route Start Last Admin Trade Name Freq PRN Reason Stop Dose Admin Sodium Chloride 10 ml 08/18/20 18:53 08/18/20 19:11 Saline Flush FLUSH 10 ml ASDIRECTED PRN Administration Keep Vein Open Sodium Chloride 10 ml 08/18/20 20:30 08/18/20 20:48 Saline Flush FLUSH 10 ml BOLUS SHRUTHI Administration Discontinued Medications Generic Name Dose Route Start Last Admin Trade Name Hayder PRN Reason Stop Dose Admin Sodium Chloride 1,000 mls @ 1,000 mls/hr 08/18/20 18:53 08/18/20 19:11 Normal Saline IV 08/18/20 19:52 1,000 mls/hr .BOLUS STA Administration Iopamidol 100 ml 08/18/20 19:45 08/18/20 20:48 Isovue-300 (61%) IVPUSH 08/18/20 19:46 100 ml ONETIME ONE Administration Ondansetron HCl 4 mg 08/18/20 18:53 08/18/20 19:11 Zofran IVPUSH 08/18/20 18:54 4 mg ONETIME ONE Administration - Re-Assessments/Exams Free Text/Narrative Re-Assessment/Exam: 08/18/20 20:[address] Valverde. The patient's CBC is remarkable for mild thrombocytopenia of 133,000, with the remainder of her CBC being unremarkable. Her CMP is remarkable for slight hypoglycemia of 72, with the remainder of her CMP being unremarkable. Her CRP is slightly elevated at 1.9. Her serum qualitative hCG is negative. Her urinalysis is unremarkable. 08/18/20 21:23 CT of the abdomen and pelvis with oral and IV contrast is read by [facility] as: 1. No acute intra-abdominal pathology is identified. Specifically, there is no evidence of bowel obstruction. 2. There are 2 small round low-density masses in the uterus, perhaps related to fibroids. Consider follow-up evaluation with pelvic ultrasound if there is pain or dysfunctional uterine bleeding. 08/18/20 21:30 Test results discussed with the patient. As above, today's work-up is entirely unremarkable, and does not explain the cause of her recurrent abdominal pain, nausea, vomiting, and diarrhea. I explained to the patient that uterine fibroids can cause abdominal pain and abnormal vaginal bleeding, but should not cause nausea, vomiting, or diarrhea. I offered to prescribe some Zofran, however, the patient stated that she is not currently nauseated. Instead, the patient will be treated with a single dose of Bentyl here in the ED, and I will submit a prescription for the same. She can then follow-up with her PCP. Departure - Departure Time of Disposition: 21:31 Condition: Good - Discharge Information *PRESCRIPTION DRUG MONITORING PROGRAM REVIEWED*: Not Applicable *COPY OF PRESCRIPTION DRUG MONITORING REPORT IN PATIENT VIVIEN: Not Applicable Sepsis Event Note (ED) - Focused Exam Vital Signs: Vital Signs Temp Pulse Resp BP Pulse Ox 08/18/20 18:40 36.6 C 100 18 131/92 H 98 - My Orders Last 24 Hours: My Active Orders 08/18/20 21:29 Dicyclomine [Bentyl] 20 mg PO ONETIME STA - Assessment/Plan Last 24 Hours: My Active Orders 08/18/20 21:29 Dicyclomine [Bentyl] 20 mg PO ONETIME STA
[2020-08-18] MEDS ORDERED: Iopamidol 612 MG/ML 100 ML Bottle IVPUSH ONE (19:45)
[2020-08-18] MEDS ORDERED: Sodium Chloride 0.9% 10 ML Syringe FLUSH SCH (20:30)
[2020-08-18] MEDS ORDERED: Dicyclomine 10 MG Cap PO STA (21:29)
[2020-08-18 22:05] VITALS: BP 118/76; PULSE 78
--- NOTE | 2020-08-19 09:11 | CT ---
CT abdomen and pelvis Technique: Multiple axial sections were obtained from above the dome of the diaphragm inferiorly through the pubic symphysis. Intravenous and oral contrast was utilized. Delayed images were also obtained. Reconstructed coronal and sagittal images were obtained. Comparison: No previous CT abdomen or pelvis study is available. Findings: Minimal atelectasis is seen posteriorly within both lung bases. Liver shows a small enhancing lesion within the upper right lobe measuring about 8 mm. This is most likely benign given the patient's age. No additional abnormality is seen within the liver. Spleen shows no focal abnormality. Adrenal glands show no nodule. Pancreas shows no discrete abnormality. Gallbladder contains no calcified gallstones. Kidneys show symmetric contrast enhancement. No hydronephrosis or mass is seen. Delayed images show contrast excretion into both ureters and into the bladder. Abdominal aorta shows no aneurysm. No retroperitoneal adenopathy or mesenteric abnormalities are seen. Two small low density areas are identified within the uterus most likely representing small fibroids. No pelvic mass or adenopathy is seen. No free fluid or inflammatory change is appreciated. Appendix is seen which appears normal in size. Bone window settings were reviewed. Mild disc space narrowing at L5-S1. Degenerative apophyseal change is noted at L4-5. No acute osseous finding is appreciated. Impression: 1. Findings as noted above. 2. Nothing acute is appreciated on CT study of the abdomen and pelvis. Diagnostic code #2 I agree with preliminary report from [facility], finalized on 08/18/20, 10:18 PM [employer]
== END 2020-08-18 21:45 | disposition home or self-care (01) ==
LOC: JD.ED 18:07
DX: R10.9 Unspecified abdominal pain (principal); R11.2 Nausea with vomiting, unspecified; R19.7 Diarrhea, unspecified; Z72.0 Tobacco use
CPT/HCPCS: 36415; 74177; 80053; 81001; 84703; 85025; 86140; 96374; 99284; A9270; J2405; J7030; Q9967